=== PATIENT | male | born 1980 | race Caucasian/White ===

== ENCOUNTER 2025-03-09 06:17 | Day surgery (SDC) | payer BC, SELFPAY | END 2025-03-09 08:50 | disposition home or self-care (01) | LOC: GI 06:17 | PROVIDERS: ATTENDING PHYSICIAN Internal Medicine Gastroenterology | DX: Z12.11 Encounter for screening for malignant neoplasm of colon (principal); K64.8 Other hemorrhoids; Z80.0 Family history of malignant neoplasm of digestive organs; D12.2 Benign neoplasm of ascending colon | CPT/HCPCS: 45380; 88305 ==